=== PATIENT | female | born 1960 | race African-American/Black ===

== ENCOUNTER 2021-01-30 20:36 | Inpatient (IN) | payer OTHER ==
[~2021-01-30] VITALS: Ht 162.6 cm; Wt 94.8 kg
[~2021-01-30 20:36] MED LIST: ASPI-1497 PO; ATOR40TA70 PO; FAMO20TA8 PO; LEVO137T2 PO; METH500T PO; MULT-1146 PO; TOPUD PO; TRAM50TA3 PO; TRIA1CAP6 PO
[2021-01-30] MEDS ORDERED: VISCOUS LIDOCAINE 2% 15 ML UDC MM STA (21:20)
[2021-01-30] MEDS ORDERED: ONDANSETRON HCL 4MG/2ML INJ IV ONE (21:30)
[2021-01-30] MEDS ORDERED: MAGNESIUM/ALUMINUM HYDROXIDE/SIMETHICONE 30ML UDC PO ONE (21:30)
[2021-01-30 21:59] LABS: BASOPHILS % 0.8 % (0.0-2.0); EOSINOPHILS % 2.5 % (0.0-5.0); HEMATOCRIT. 36.7 % (36.0-48.0); HEMOGLOBIN. 12.4 g/dL (12.0-16.0); LYMPHOCYTES % 35.8 % (20.0-50.0); MEAN CORPUSCULAR VOLUME 88.9 fL (81.0-99.0); MEAN PLATELET VOLUME 9.4 fl (7.4-10.4); MONOCYTES % 7.5 % (2.0-8.0); NEUTROPHILS % 53.4 % (40.0-76.0); PLATELET 260 x1000/uL (130-400); RED BLOOD CELL COUNT 4.12 mill/uL (4.2-5.4); RED CELL DISTRIBUTION WIDTH 13.1 % (11.6-14.6)
[2021-01-30 22:03] LABS: CHLORIDE 107 mEq/L (98-107)
[2021-01-30] MEDS ORDERED: MAGNESIUM 2 G PREMIX 50 ML IV ONE (22:30)
[2021-01-30] MEDS ORDERED: POTASSIUM CHLORIDE INJ 40 MEQ in DEXT 5% WATER 250 ML IV ONE (22:30)
[2021-01-30 22:42] LABS: PHOSPHORUS 2.2 mg/dL (2.5-4.9)
[2021-01-31 09:20] VITALS: BP 123/55
[2021-01-31 10:27] VITALS: BP 135/68
[2021-01-31] MEDS ORDERED: ONDANSETRON HCL 4MG/2ML INJ IV PRN (11:30)
[2021-01-31] MEDS ORDERED: POTASSIUM CHLORIDE 20MEQ TABLET SR PO NR (11:30)
[2021-01-31 12:00] VITALS: BP 107/58
[2021-01-31 16:10] VITALS: BP 122/64
[2021-01-31] MEDS ORDERED: POTASSIUM-SODIUM PHOSPHATE POWDER PACKET PO NR (16:45)
[2021-01-31 20:00] VITALS: BP 132/63
[2021-01-31] MEDS: ACETAMINOPHEN 325MG TABLET PO PRN (20:37)
[2021-02-01] VITALS (8 sets, daily range): BP systolic 104–141; BP diastolic 50–96
[2021-02-01] MEDS: ACETAMINOPHEN 325MG TABLET PO PRN (03:43)
[2021-02-01] MEDS: OMEPRAZOLE 20MG CAPSULE EXTENDED RELEASE PO SCH (06:20)
[2021-02-01 06:27] LABS: CLARITY URINE CLEAR (CLEAR); COLOR URINE YELLOW (YELLOW); KETONES URINE TRACE (NEGATIVE); LEUKOCYTE ESTERASE URINE NEGATIVE (NEGATIVE); NITRITE URINE NEGATIVE (NEGATIVE); OCCULT BLOOD URINE NEGATIVE (NEGATIVE); PROTEIN URINE NEGATIVE (NEGATIVE); SPECIFIC GRAVITY URINE 1.019 (1.005-1.030); UROBILINOGEN URINE 0.2 E.U./dL (0.2-1.0)
[2021-02-01 06:32] LABS: BASOPHILS % 1.1 % (0.0-2.0); EOSINOPHILS % 5.5 % (0.0-5.0); HEMATOCRIT. 34.1 % (36.0-48.0); HEMOGLOBIN. 11.4 g/dL (12.0-16.0); LYMPHOCYTES % 36.6 % (20.0-50.0); MEAN CORPUSCULAR HEMOGLOBIN 30.2 pg (28.0-32.0); MEAN CORPUSCULAR VOLUME 90.1 fL (81.0-99.0); MEAN PLATELET VOLUME 9.6 fl (7.4-10.4); MONOCYTES % 8.1 % (2.0-8.0); NEUTROPHILS % 48.7 % (40.0-76.0); PLATELET 213 x1000/uL (130-400); RED BLOOD CELL COUNT 3.78 mill/uL (4.2-5.4); RED CELL DISTRIBUTION WIDTH 13.1 % (11.6-14.6)
[2021-02-01 06:41] LABS: *AMPHETAMINES SCREEN URINE NEGATIVE (NEGATIVE); *BARBITURATES SCREEN URINE NEGATIVE (NEGATIVE); *BENZODIAZEPINES SCREEN URINE NEGATIVE (NEGATIVE); *COCAINE SCREEN URINE NEGATIVE (NEGATIVE); CANNABINOID URINE SCREEN NEGATIVE (NEGATIVE); METHADONE URINE SCREEN NEGATIVE (NEGATIVE)
[2021-02-01 06:42] LABS: OPIATES URINE SCREEN NEGATIVE (NEGATIVE); PHENCYCLIDINE URINE SCREEN NEGATIVE (NEGATIVE)
[2021-02-01 06:42] LABS: CHLORIDE 110 mEq/L (98-107)
[2021-02-01] MEDS: LEVOTHYROXINE SODIUM 137MCG TABLET PO SCH (13:58)
[2021-02-02 00:30] VITALS: BP 111/56
[2021-02-02 04:30] VITALS: BP 119/60
[2021-02-02] MEDS: OMEPRAZOLE 20MG CAPSULE EXTENDED RELEASE PO SCH (06:25)
[2021-02-02] MEDS: LEVOTHYROXINE SODIUM 137MCG TABLET PO SCH (06:25)
[2021-02-02 11:02] VITALS: BP 126/72
[2021-02-02 15:38] VITALS: BP 122/72
[2021-02-02 20:00] VITALS: BP 124/78
[2021-02-03] VITALS: BP 124/66
[2021-02-03 04:00] VITALS: BP 114/61
[2021-02-03] MEDS: LEVOTHYROXINE SODIUM 137MCG TABLET PO SCH (06:33)
[2021-02-03] MEDS: OMEPRAZOLE 20MG CAPSULE EXTENDED RELEASE PO SCH (06:33)
[2021-02-03 08:00] VITALS: BP 109/61
[2021-02-03] MEDS ORDERED: EZ-HD SUSPENSION(BARIUM SULFATE 340GM) PO ONE (11:53)
[2021-02-03] MEDS ORDERED: BARIUM SULFATE 176 GM SUSP.RECON ONE (11:54)
[2021-02-03] MEDS ORDERED: LIDOCAINE HCL/EPINEPHRINE 1%-EPI 1:100,000 20 ML VIAL ONE (11:55)
[2021-02-03] MEDS ORDERED: SIMETHICONE/SOD BICARB/CIT AC 1 EACH GRAN.EF.PK ONE (11:55)
[2021-02-03 12:00] VITALS: BP 115/64
[2021-02-03 13:16] VITALS: BP 109/61
== END 2021-02-03 14:40 | disposition home or self-care (01) | DRG 243 ==
LOC: ER 20:36 → 6WST 23:26 → ENRESERV 01-31 07:21 → ER 01-31 08:12
PROVIDERS: ADMIT Internal Medicine; ATTEND Internal Medicine
DX: K21.9 Gastro-esophageal reflux disease without esophagitis (principal); I11.9 Hypertensive heart disease without heart failure; E83.39 Other disorders of phosphorus metabolism; E87.6 Hypokalemia; D64.9 Anemia, unspecified; F41.9 Anxiety disorder, unspecified; E66.9 Obesity, unspecified; M43.12 Spondylolisthesis, cervical region; M10.9 Gout, unspecified; E03.9 Hypothyroidism, unspecified; Z68.35 Body mass index [BMI] 35.0-35.9, adult; Z71.6 Tobacco abuse counseling; Z88.5 Allergy status to narcotic agent; Z86.718 Personal history of other venous thrombosis and embolism; Z91.041 Radiographic dye allergy status; Z79.1 Long term (current) use of non-steroidal anti-inflammatories (NSAID); Z79.899 Other long term (current) drug therapy; Z71.3 Dietary counseling and surveillance
CPT/HCPCS: 36415; 71045; 74220; 76604; 80048; 80053; 80305; 81003; 83735; 83880; 84100; 84132; 84484; 85025; 93005; 93306; 93970; 97162; 99285; J2405; J3475; J3480; J3490; J7060; J7517

== ENCOUNTER 2025-01-31 15:35 | Emergency (ER) | payer OTHER ==
[~2025-01-31] VITALS: Ht 152.4 cm; Wt 98.0 kg
[2025-01-31 15:52] VITALS: O2SAT 100
[2025-01-31 16:55] LABS: BASOPHILS % 0.7 % (0.0-2.0); EOSINOPHILS % 1.8 % (0.0-5.0); HEMOGLOBIN. 13.2 g/dL (12.0-16.0); LYMPHOCYTES % 35.1 % (20.0-50.0); MEAN CORPUSCULAR HEMOGLOBIN 28.8 pg (28.0-32.0); MEAN CORPUSCULAR HGB CONC 32.9 g/dL (31.0-37.0); MEAN CORPUSCULAR VOLUME 87.6 fL (81.0-99.0); MEAN PLATELET VOLUME 8.5 fl (7.4-10.4); MONOCYTES % 7.9 % (2.0-8.0); NEUTROPHILS % 54.5 % (40.0-76.0); PLATELET 332 x1000/uL (130-400); RED BLOOD CELL COUNT 4.57 mill/uL (4.2-5.4); RED CELL DISTRIBUTION WIDTH 13.3 % (11.6-14.6); WHITE BLOOD COUNT 8.8 x1000/uL (4.5-11.0)
[2025-01-31 17:11] LABS: CHLORIDE 106 mEq/L (98-107); POTASSIUM 3.4 mEq/L (3.5-5.1); SODIUM 142 mEq/L (136-145)
[2025-01-31 17:12] LABS: CALCIUM 9.6 mg/dL (8.7-10.4); CARBON DIOXIDE 30 mEq/L (21-32)
[2025-01-31 17:17] LABS: CREATININE 0.9 mg/dL (0.6-1.0); ETHANOL BLOOD < 10 mg/dL (<10); GLUCOSE 99 mg/dL (70-105); UREA NITROGEN BLOOD 13 mg/dL (9-23)
[2025-01-31 17:30] LABS: TROPONIN I HIGH SENSITIVITY < 4 ng/L (3.0-34)
[2025-01-31 18:27] LABS: CLARITY URINE CLEAR (CLEAR); COLOR URINE YELLOW (YELLOW); GLUCOSE URINE NEGATIVE (NEGATIVE); KETONES URINE NEGATIVE (NEGATIVE); LEUKOCYTE ESTERASE URINE NEGATIVE (NEGATIVE); NITRITE URINE NEGATIVE (NEGATIVE); OCCULT BLOOD URINE NEGATIVE (NEGATIVE); PH URINE 6.5 (4.5-8.0); PROTEIN URINE NEGATIVE (NEGATIVE); SPECIFIC GRAVITY URINE 1.011 (1.005-1.030)
[2025-01-31 18:44] LABS: *AMPHETAMINES SCREEN URINE NEGATIVE (NEGATIVE); *BARBITURATES SCREEN URINE NEGATIVE (NEGATIVE); *BENZODIAZEPINES SCREEN URINE NEGATIVE (NEGATIVE); *COCAINE SCREEN URINE NEGATIVE (NEGATIVE); CANNABINOID URINE SCREEN NEGATIVE (NEGATIVE); ECSTASY MDMA SCREEN URINE NEGATIVE (NEGATIVE); METHADONE URINE SCREEN NEGATIVE (NEGATIVE); OPIATES URINE SCREEN NEGATIVE (NEGATIVE); PHENCYCLIDINE URINE SCREEN NEGATIVE (NEGATIVE)
[2025-01-31 18:46] VITALS: BP 116/70; PULSE 74; RESP 18; TEMP 36.9; O2SAT 98
== END 2025-01-31 18:57 | disposition home or self-care (01) ==
LOC: ER 15:35
DX: R11.2 Nausea with vomiting, unspecified (principal); R51.9 Headache, unspecified; R20.2 Paresthesia of skin; E03.9 Hypothyroidism, unspecified; E78.00 Pure hypercholesterolemia, unspecified; I11.9 Hypertensive heart disease without heart failure; M19.90 Unspecified osteoarthritis, unspecified site; Z79.82 Long term (current) use of aspirin; Z79.890 Hormone replacement therapy; Z79.899 Other long term (current) drug therapy; Z88.5 Allergy status to narcotic agent; Z88.8 Allergy status to other drugs, medicaments and biological substances; Z91.041 Radiographic dye allergy status; Z96.659 Presence of unspecified artificial knee joint
CPT/HCPCS: 36415; 71045; 80048; 80305; 80320; 81003; 84484; 85025; 93005; 99285; G0480